=== PATIENT | male | born 1985 | race Asian ===

== ENCOUNTER 2016-03-26 15:56 | Emergency (ER) | payer MEDICAID, OTHER ==
[~2016-03-26] VITALS: Ht 172.7 cm; Wt 72.7 kg
[2016-03-26] MEDS ORDERED: HYDROmorphone 2 MG/ML SYRINGE IM ONE (18:15)
[2016-03-26] MEDS ORDERED: ONDANSETRON HCL 4 MG/2 ML VIAL IM ONE (18:15)
[2016-03-26] MEDS ORDERED: HYDROmorphone 2 MG/ML SYRINGE IVP ONE ×2 (18:30→19:30)
[2016-03-26] MEDS ORDERED: ONDANSETRON HCL 4 MG/2 ML VIAL IVP ONE (18:30)
[2016-03-26] MEDS ORDERED: KETOROLAC TROMETHAMINE 30 MG/ML VIAL IVP ONE (19:30)
[2016-03-26] MEDS ORDERED: LORazepam 2 MG/ML VIAL IVP ONE (19:30)
[2016-03-26 22:26] VITALS: BP 142/84
== END 2016-03-26 22:29 | disposition home or self-care (01) ==
LOC: EMS 15:57
DX: S82.892A Other fracture of left lower leg, initial encounter for closed fracture (principal); V49.88XA Car occupant (driver) (passenger) injured in other specified transport accidents, initial encounter; Y93.89 Activity, other specified; Y92.89 Other specified places as the place of occurrence of the external cause; Y99.8 Other external cause status
CPT/HCPCS: 29515; 73590; 73610; 73630; 73700; 96374; 96375; 96376; 99284; J1170; J1885; J2060; J2405

== ENCOUNTER 2017-02-16 16:15 | Emergency (ER) | payer SELFPAY ==
[~2017-02-16] VITALS: Ht 172.7 cm; Wt 81.8 kg
[2017-02-16] MEDS ORDERED: TRAM50TA4 PO (16:35)
[2017-02-16] MEDS ORDERED: TRI405I IM (16:36)
[2017-02-16] MEDS ORDERED: LANS15CA17 PO (16:36)
[2017-02-16] MEDS ORDERED: NAPR250T4 PO (16:36)
[2017-02-16 16:56] VITALS: BP 153/106
[2017-02-16] MEDS ORDERED: KETOROLAC TROMETHAMINE 10 MG TABLET PO ONE (17:00)
== END 2017-02-16 18:03 | disposition home or self-care (01) ==
LOC: EMS 16:16
DX: M25.572 Pain in left ankle and joints of left foot (principal)
CPT/HCPCS: 99282

== ENCOUNTER 2017-05-10 08:19 | Emergency (ER) | payer OTHER ==
[~2017-05-10] VITALS: Ht 172.7 cm; Wt 81.5 kg
[~2017-05-10 08:19] MED LIST: LANS15CA17 PO; NAPR250T4 PO; TRAM50TA4 PO; TRI405I IM
[2017-05-10 08:39] VITALS: BP 148/82
== END 2017-05-10 09:04 | disposition home or self-care (01) ==
LOC: EMS 08:20
DX: J06.9 Acute upper respiratory infection, unspecified (principal); R03.0 Elevated blood-pressure reading, without diagnosis of hypertension
CPT/HCPCS: 99282

== ENCOUNTER 2017-05-31 11:12 | Emergency (ER) | payer OTHER ==
[~2017-05-31] VITALS: Ht 172.7 cm; Wt 81.8 kg
[~2017-05-31 11:12] MED LIST changes: -LANS15CA17 PO; -TRAM50TA4 PO; -TRI405I IM
[2017-05-31 11:19] VITALS: BP 148/105
== END 2017-05-31 14:00 | disposition left against medical advice (07) ==
LOC: EMS 11:13
DX: Z53.21 Procedure and treatment not carried out due to patient leaving prior to being seen by health care provider (principal)

== ENCOUNTER 2017-05-31 20:28 | Emergency (ER) | payer OTHER ==
[~2017-05-31] VITALS: Ht 172.7 cm; Wt 8.2 kg
[2017-06-01] MEDS ORDERED: KETOROLAC TROMETHAMINE 30 MG/ML VIAL IVP ONE (00:45)
[2017-06-01] MEDS ORDERED: SODIUM CHLORIDE 0.9% 1,000 ML IV ONE (00:45)
[2017-06-01] MEDS ORDERED: DiphenhydrAMINE HCL 50 MG/ML VIAL IVP ONE (00:45)
[2017-06-01] MEDS ORDERED: PROCHLORPERAZINE EDISYLATE 5 MG/ML 2 ML VIAL IVP ONE (00:45)
[2017-06-01 02:32] VITALS: BP 133/81
== END 2017-06-01 02:40 | disposition home or self-care (01) ==
LOC: EMS 20:29
DX: R51 Headache (principal)
CPT/HCPCS: 96361; 96374; 96375; 99284; J0780; J1200; J1885; J7030